=== PATIENT | male | born 1985 | race Caucasian/White ===

== ENCOUNTER 2019-04-22 15:40 | Emergency (ER) | payer BC ==
[2019-04-22 16:06] VITALS: BP 125/64
--- NOTE | 2019-04-22 16:33 | UC ---
Respiratory Complaint HPI - HPI Summary HPI Summary: Patient presents to urgent care with 7 days of progressive cough congestion wheeze. Patient states it hurts when he takes deep breaths. Patient states he feels a "rattle" in his chest. Patient reports tactile temperature. No fevers or chills. No nausea, vomiting, rash. Patient has intermittently taken over- the-counter cough medication with little improvement. Patient states he does not smoke. 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 Patient's medications as an infant in the EMR by the nurse were reviewed today. - History of Current Complaint Chief Complaint: UCGeneralIllness Stated Complaint: CONGESTION,CHEST BURNING,COUGH,WHEEZY Time Seen by Provider: 04/22/19 16:33 Hx Obtained From: Patient Severity Initially: Moderate Severity Currently: Moderate Pain Intensity: 6 - Allergies/Home Medications Allergies/Adverse Reactions: Allergies Allergy/AdvReac Type Severity Reaction Status Date / Time No Known Allergies Allergy Verified 04/22/19 16:07 PMH/Surg Hx/FS Hx/Imm Hx Previously Healthy: Yes Other History Of: Anticoagulant Therapy - Surgical History Surgical History: Yes Surgery Procedure, Year, and Place: EAR TUBES - Family History Known Family History: Positive: None - no family history of clotting disorders, early , mi or cva, Other - no FH of clot, possibly one grandfather, but hx is not well documented - Social History Occupation: Employed Full-time Lives: With Family Alcohol Use: Occasionally Substance Use Type: None Smoking Status (MU): Never Smoked Tobacco - Immunization History Most Recent Influenza Vaccination: no Review of Systems All Other Systems Reviewed And Are Negative: Yes Constitutional: Positive: Fever - Tactile ENT: Positive: Sinus Congestion Respiratory: Positive: Cough Physical Exam - Summary Physical Exam Summary: Vital Signs Reviewed: Yes A+Ox3, no distress Eyes: Conjunctiva Clear, ALEKSANDER. EOM intact and full ENT: Hearing grossly normal TM x 2 clear, mmoist, uvula midline, no exudate, no erythema Neck: Positive: Supple Respiratory: Positive: No respiratory distress, No accessory muscle use +coarse cough, wheeze L>R, no retractions, speaking full easy sentences Cardiovascular: RRR nl s1, s2 no m/r CBT <2 sec abd soft + BS nt/nd no guarding, no distension Musculoskeletal Exam: LITTLE x 4 without difficulty Strength Intact, ROM Intact Neurological: Positive: Alert, + sensation throughout Psychological: Positive: Normal Response To examiner Skin: Positive: no rash, no ecchymosis Triage Information Reviewed: Yes Vital Signs: Initial Vital Signs Temp 97.9 F 04/22/19 16:01 Pulse 65 04/22/19 16:01 Resp 16 04/22/19 16:01 BP 125/64 04/22/19 16:01 Pulse Ox 99 04/22/19 16:01 Diagnostics - Radiology No standard instances Radiology Interpretation Completed By: Radiologist - Patient Name: OPAL GABRIEL Medical Record#: [id number] Ordering Physician: Chrissy Estrada MD Acct.#: [id number] : 1985 Age: 33 Sex: M Location: [facility] Exam Date: 04/22/191642 ADM Status: REG ER Order Information: CHEST PA & LAT 2 VWS Accession Number : [id number] CPT: 80436 Indication: Left lung rhonchi. 2 views of the chest demonstrate no mediastinal shift. As a normal size and configuration. Lung galindo are clear. IMPRESSION: No active cardiopulmonary disease is noted. <Electronically signed by Shellie Mann MD in [place]> 04/22/191656 Dictated By: Shellie Mann MD Dictated Date/Time: 04/22/191655 Transcribed Date/Time: 04/22/191655 Copy to: CC:Megan Estrada MD; Chrissy Estrada MD Imaging - [facility] Imaging [facility] [place] [facility]gent [facility] [address] [place] [address] ph [phone] ph [phone]) ph ) This report is only to be considered final once signed by the Provider(s) as displayed in the "<Electronically Signed by > " field (s). Absence of a signature indicates the report is in a draft status and still needs to be finalized. In the event this document was created by someone other than the signing Provider, the individual initiating the document will be listed in the "Entered by:" or "Dictated by:" galindo. 1 of 1 Re-Evaluation - Re-Evaluation First Eval Change: Improved - Patient reports much improved following the neb. Wheezing resolved. Patient states it easier for him to take a deep breath. Chest x-ray was also reviewed. Will start patient on antibiotics. MDI. Secretion precautions. Motrin and Tylenol. Humidified air. Respiratory return precautions. Patient comfortable in agreement with plan. Respiratory Course/Dx - Course Course Of Treatment: Patient presents to urgent care reporting progressive cough and congestion over the last 7 days. Patient states he now has some burning in his chest when he takes deep breaths. Patient states he feels a rattle in his chest. On exam, vital signs are stable. Patient does have coarse X trying wheezing and cough on his left or the right side. Patient of distress. We'll do a chest x-ray given a DuoNeb and reassessed. - Differential Dx/Diagnosis Provider Diagnosis: Acute bronchitis Discharge ED - Sign-Out/Discharge Documenting (check all that apply): Patient Departure All imaging exams completed and their final reports reviewed: Yes - Discharge Plan Condition: Stable Disposition: HOME Prescriptions: Albuterol HFA INHALER* [Ventolin HFA Inhaler*] 2 puff INH Q4H PRN #1 mdi PRN Reason: cough, wheeze Amoxicillin PO (*) [Amoxicillin 500 MG CAP*] 500 mg PO Q12H #20 cap Inhaler, Assist Devices [Aerochamber Mv] 1 each PO Q4HR #1 spacer Patient Education Materials: Acute Bronchitis (ED) Referrals: Megan Estrada MD [Primary Care Provider] - Additional Instructions: -Take antibiotics exactly as prescribed until gone -Use your albuterol puffer - 2 puffs every 4 hours for the next 2 days - then as needed -Stay well hydrated - avoid excess caffeine and all alcohol - eat regular, healthy meals - - humidify the air in the room where you sleep - boil water, run a hot steam shower, vaporizer, cups of water by heat register - okay to take over the counter decongestant and cough medication -- These infections are spread by secretions - do NOT share eating or drinking utensils - clean items you share with other people such as cell phones, computer mouse, TV remote, computer tablets,etc.. Once you have been antibiotics for 2 days, change your toothbrush and your pillowcase. -Contact your doctor to arrange a follow-up appointment this week. Call your doctor, return here or go to the emergency department with any questions or concerns - Billing Disposition and Condition Condition: STABLE Disposition: Home
[2019-04-22] MEDS ORDERED: Albuterol/Ipratropium NEB.SOL* Albuterol 2.5 MG/Ipratropium 0.5 MG 3 ML INH ONE (17:08)
== END 2019-04-22 17:47 | disposition home or self-care (01) ==
LOC: UCCORT 15:40
DX: J20.9 Acute bronchitis, unspecified (principal); J34.89 Other specified disorders of nose and nasal sinuses
CPT/HCPCS: 71046; 99202; A9270-GY; G0463